=== PATIENT | female | born 1940 ===

== ENCOUNTER → 2022-12-29 14:53 | Outpatient (BNVA) | payer MEDICARE, SELFPAY | PROVIDERS: Family Provider Nurse Practitioner Family; PCP Family Medicine; Visit Provider Family Medicine | DX: I10 Essential (primary) hypertension (principal); E55.9 Vitamin D deficiency, unspecified; Z86.39 Personal history of other endocrine, nutritional and metabolic disease | CPT/HCPCS: 80053; 80061; 82306; 84443; 85025 ==

== ENCOUNTER → 2025-04-09 09:40 | Outpatient (BNVA) | payer MEDICARE, SELFPAY | PROVIDERS: PCP Nurse Practitioner; Visit Provider Nurse Practitioner Family | DX: L57.8 Other skin changes due to chronic exposure to nonionizing radiation (principal); L82.1 Other seborrheic keratosis; D22.62 Melanocytic nevi of left upper limb, including shoulder; D48.5 Neoplasm of uncertain behavior of skin; L57.0 Actinic keratosis | CPT/HCPCS: 11102; 17000; 99203 ==

== ENCOUNTER → 2025-04-27 08:33 | Outpatient (BNVA) | payer MEDICARE, SELFPAY | PROVIDERS: PCP Nurse Practitioner; Visit Provider Dermatology | DX: C44.319 Basal cell carcinoma of skin of other parts of face (principal) | CPT/HCPCS: 13132; 17311; 99213 ==

== ENCOUNTER → 2025-05-03 08:34 | Outpatient (BNVA) | payer MEDICARE, SELFPAY | PROVIDERS: PCP Nurse Practitioner; Visit Provider Dermatology | DX: C44.319 Basal cell carcinoma of skin of other parts of face (principal) | CPT/HCPCS: 13132; 17311 ==

== ENCOUNTER → 2025-07-24 08:51 | Outpatient (BNVA) | payer MEDICARE, SELFPAY | PROVIDERS: PCP Nurse Practitioner; Visit Provider Clinical Nurse Specialist Adult Health | DX: R32 Unspecified urinary incontinence (principal); Z86.73 Personal history of transient ischemic attack (TIA), and cerebral infarction without residual deficits; R01.1 Cardiac murmur, unspecified; I10 Essential (primary) hypertension; I48.91 Unspecified atrial fibrillation; Z86.39 Personal history of other endocrine, nutritional and metabolic disease; R73.9 Hyperglycemia, unspecified | CPT/HCPCS: 80053; 80061; 81000; 82306; 82607; 83036; 84443; 85025; 87086 ==

== ENCOUNTER 2025-08-02 09:54 | Outpatient (CLI) | payer MEDICARE, SELFPAY ==
--- NOTE | 2025-08-02 10:15 | MR_ITS ---
WS: [id number] MRI HEAD WITHOUT CONTRAST TECHNIQUE: Sagittal T1, T2 axial, T2 axial FLAIR, axial and coronal T1 images, axial susceptibility weighted imaging, axial diffusion weighted images, and coronal T2 images were obtained. CLINICAL INFORMATION: Z86.73 - Personal history of transient ischemic attack (T... COMPARISON: 2018 FINDINGS: No evidence of restricted diffusion to suggest acute ischemia. Moderate small vessel changes with moderate parenchymal volume loss. Small vessel changes in the georgette. Normal posterior fossa. Normal vascular flow voids at the skull base. Paranasal sinuses and mastoid air cells are well aerated. Normal posterior nasopharynx. Anterior dominant circulation. 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 Mild contact of the underlying anterior LEFT temporal lobe. No underlying edema. This is similar in appearance to 2018. 2 small punctate foci of hemosiderin at the RIGHT frontal parietal junction. This is stable compared to previous. Normal optic chiasm and pituitary infundibulum. Moderate symmetric atrophy temporal lobes and hippocampal formations. MR/MR head wo con* [id number] IMPRESSION: 1. No evidence of restricted diffusion to suggest acute ischemia. 2. Moderate small vessel changes with moderate parenchymal volume loss progres sed compared to 2018. 3. 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 N o significant mass effect. No edema in the underlying LEFT anterior temporal lo be. This is similar in appearance to 2018. 4. Two small punctate foci of hemosiderin at the RIGHT frontal parietal juncti on unchanged. 5. Moderate symmetric atrophy temporal lobes and hippocampal formations. 6. No other acute findings.
== END 2025-08-02 09:55 | disposition home or self-care (01) ==
LOC: RAD 09:55
PROVIDERS: PCP Nurse Practitioner; Visit Provider Clinical Nurse Specialist Adult Health
DX: Z86.73 Personal history of transient ischemic attack (TIA), and cerebral infarction without residual deficits (principal); R41.0 Disorientation, unspecified; G31.89 Other specified degenerative diseases of nervous system; R90.89 Other abnormal findings on diagnostic imaging of central nervous system; D32.0 Benign neoplasm of cerebral meninges
CPT/HCPCS: 70551

== ENCOUNTER 2025-08-03 12:38 | Outpatient (CLI) | payer MEDICARE, SELFPAY ==
--- NOTE | 2025-08-03 13:00 | USCV_ITS ---
Destiny Oates Age: 85 Gender: F : 1940 Exam Date: 08/03/2025 13:24 Ordering Phys: Elvis Lopez NP Technologist: Exam Location: [facility] [place]_ Indication: tia Risk Factors: Previous Vascular Surgery: Right Brachial BP: / Left Brachial BP: / Right Left Velocity (cm/s) Spectral Plaque Velocity (cm/s) Spectral Plaque Syst/Diast Broadening Syst/Diast Broadening 47.80/ 14.20 Prox CCA 51.30 / 22.90 59.30/ 14.10 Mid CCA 55.40 / 18.80 43.60/ 9.20 Distal CCA 42.50 / 13.00 42.10/ 14.70 Prox ICA 42.30 / 12.90 46.10/ 13.80 Mid ICA 56.90 / 22.10 78.40/ 31.30 Distal ICA 75.50 / 26.80 66.80 ECA 41.90 1.00 ICA/CCA 1.00 Antegrade Vertebral Antegrade 23.70/ 4.60 cm/s 37.00/ 6.40 cm/s Tri Subclavian Bi 36.40 59.00 FINDINGS Comparison: none available. No significant elevation of systolic or diastolic velocities. Waveforms are normal. Mixture of calcified and noncalcified plaque in the bifurcations. Seen only a few images is a solid mass in the left neck, favor thyroid etiology. CONCLUSIONS Bilateral ICA stenosis less than 50%. Mild carotid atherosclerosis. Left neck mass, recommend thyroid US. Dr. Margaux Grande DO (Electronically Signed) Final Date: 03 August 2025 14:41 S
[2025-08-03 14:20] LABS: Ammonia 12 umol/L (11-51)
== END 2025-08-03 12:39 | disposition home or self-care (01) ==
PROVIDERS: PCP Nurse Practitioner; Visit Provider Clinical Nurse Specialist Adult Health
DX: Z86.73 Personal history of transient ischemic attack (TIA), and cerebral infarction without residual deficits (principal); R01.1 Cardiac murmur, unspecified; I48.91 Unspecified atrial fibrillation; R17 Unspecified jaundice; E87.20 Acidosis, unspecified
CPT/HCPCS: 36415; 82140; 93880

== ENCOUNTER 2025-08-14 13:57 | Outpatient (CLI) | payer MEDICARE, SELFPAY ==
--- NOTE | 2025-08-14 14:15 | USCV_ITS ---
Destiny Oates Age: 85 Gender: F : 1940 Exam Date: 08/14/2025 14:27 Ordering Phys: Elvis Lopez NP Technologist: TIMOTHY Exam Location: [facility] [place] Indication: MURMUR BP: 128 / 81 HR: 76 Rhythm: Sinus Technical Quality: Adequate MEASUREMENTS (Male / Female) Normal Values 2D ECHO LV Diastolic Diameter PLAX 4.8 cm 4.2 - 5.9 / 3.9 - 5.3 cm IVS Diastolic Thickness 0.9 cm 0.6 - 1.0 / 0.6 - 0.9 cm IVS Systolic Thickness 1.0 cm LVPW Diastolic Thickness 0.9 cm 0.6 - 1.0 / 0.6 - 0.9 cm LVPW Systolic Thickness 1.1 cm LVOT Diameter 2.0 cm LV Ejection Fraction 2D Teich 42.0 % LV Ejection Fraction MOD 4C 61.3 % LV Ejection Fraction MOD 2C 47.7 % LV Ejection Fraction 2C AL 49.0 % LA Diameter 4.3 cm RA Systolic Volume 4C AL 127.3 ml RA Systolic Volume 4C MOD 120.8 ml LA Sys Volume AL 110.7 cm cubed LA Sys Volume Index AL 60.3 cm cubed/m squared Aorta at Sinotubular Diameter 2.3 cm IVC Diameter 2.1 cm M-MODE LA Ao Ratio MM 1.7 AV Cusp Separation MM 1.3 cm DOPPLER AV Peak Velocity 246.7 cm/s LVOT Peak Velocity 72.0 cm/s AV Area Cont Eq vti 0.9 cm squared AV Area Cont Eq pk 0.9 cm squared MV Peak Velocity 117.0 cm/s MV Area PHT 5.0 cm squared Mitral E to A Ratio 2.1 TV Peak E Velocity 56.0 cm/s PV Peak Velocity 165.0 cm/s FINDINGS Left Ventricle Normal left ventricular size, systolic function and wall thickness, with no regional wall motion abnormalities. Left ventricular ejection fraction is estimated at 60 %. Grade II/IV diastolic dysfunction, moderately elevated filling pressures. Right Ventricle Normal right ventricular size and systolic function. Right Atrium Severely increased right atrial size. Left Atrium Severely increased left atrial size. IA Septum Normal appearance of the interatrial septum. Mitral Valve Moderately thickened mitral valve. No mitral valve stenosis. Moderate mitral valve regurgitation. Aortic Valve Moderate aortic valve calcification. No aortic valve stenosis. Trace aortic valve regurgitation. Tricuspid Valve Moderate tricuspid valve regurgitation. Pulmonic Valve Mild pulmonary valve regurgitation. Pericardium No pericardial effusion. Aorta Normal diameter of the aortic root and ascending thoracic aorta. IVC Normal IVC diameter. CONCLUSIONS Normal left ventricular size, systolic function and wall thickness, with no regional wall motion abnormalities. Left ventricular ejection fraction is estimated at 60 %. Grade II/IV diastolic dysfunction, moderately elevated filling pressures. Severe Biatrial enlargment. Moderately thickened mitral valve. No mitral valve stenosis. Moderate mitral valve regurgitation. Moderate tricuspid valve regurgitation. Right atrial pressure is around 10 mm of mercury. George Barr MD (Electronically Signed) Final Date: 25 August 2025 17:53 S
== END 2025-08-14 13:58 | disposition home or self-care (01) ==
LOC: RAD 14:01
PROVIDERS: PCP Nurse Practitioner; Visit Provider Clinical Nurse Specialist Adult Health
DX: R01.1 Cardiac murmur, unspecified (principal); R93.1 Abnormal findings on diagnostic imaging of heart and coronary circulation; I51.7 Cardiomegaly; I34.0 Nonrheumatic mitral (valve) insufficiency; I35.8 Other nonrheumatic aortic valve disorders; I07.1 Rheumatic tricuspid insufficiency; I37.1 Nonrheumatic pulmonary valve insufficiency
CPT/HCPCS: 93306

== ENCOUNTER 2025-08-17 10:00 | Outpatient (CLI) | payer MEDICARE, SELFPAY ==
--- NOTE | 2025-08-17 10:30 | US_ITS ---
WS: [id number] THYROID ULTRASOUND HISTORY: R22.1 - Localized swelling, mass and lump, neck COMPARISON: None available. Right lobe: 0.8 cm x 1.1 cm x 2.7 cm (w x ap x l). Volume: 1.1 cm3. Atrophic RIGHT thyroid. No mass identified. Left lobe: 2.1 cm x 2.9 cm x 5.3 cm (w x ap x l). Volume: 15.9 cm3. Soft tissue mass in the LEFT neck in the region of the thyroid. There is increased vascularity and scattered echogenic foci. No normal-appearing thyroid tissue is identified. This mass measures at least 2.6 x 2.2 x 3.5 cm. Mass extends into the LEFT thymus. Isthmus: 0.2 cm. US/US thyroid [id number] IMPRESSION: 1. TI-RADS 5; highly suspicious LEFT thyroid mass. Recommend ultrasound-guided FNA. 2. Small atrophied RIGHT thyroid.
== END 2025-08-17 10:01 | disposition home or self-care (01) ==
LOC: RAD 10:01
PROVIDERS: PCP Nurse Practitioner; Visit Provider Clinical Nurse Specialist Adult Health
DX: R22.1 Localized swelling, mass and lump, neck (principal); E03.4 Atrophy of thyroid (acquired)
CPT/HCPCS: 76536